=== PATIENT | male | born 1960 | race Caucasian/White ===

== ENCOUNTER 2020-06-13 00:46 | Emergency (ER) | payer SELFPAY ==
[2020-06-13] MEDS ORDERED: oxyCODONE 5 MG Tab PO ONE (01:16)
[2020-06-13] MEDS ORDERED: Ketorolac 15 MG/ML SDV IVPUSH ONE (01:16)
[2020-06-13] MEDS ORDERED: Sodium Chloride 0.9% 2.5 ML Syringe FLUSH PRN (01:16)
[2020-06-13] MEDS ORDERED: Sodium Chloride 0.9% 10 ML Syringe FLUSH PRN (01:16)
--- NOTE | 2020-06-13 01:23 | EDM.PDOC ---
ED [facility] GENERAL MEDICAL PROBLEM - General Chief Complaint: Abdominal Pain Stated Complaint: POSSIBLE KIDNEY STONE Time Seen by Provider: 06/13/20 00:56 Source of Information: Reports: Patient History Limitations: Reports: No Limitations - History of Present Illness INITIAL COMMENTS - FREE TEXT/NARRATIVE: This is a very pleasant 59-year-old man with a past medical history of multiple episodes of ureteral stones and hypertension presenting with abdominal pain. He presents to the emergency department a 3-day history of left lower quadrant abdominal pain radiating to the groin. He states that he has had "20 kidney stones" in the past, and states that these symptoms feel identical to prior stones. He also reports some nausea but no vomiting. Reports some dysuria that seems to be getting better on its own over the past day or so. Denies fever, hematuria, rash, vomiting, diarrhea, rectal bleeding. Pain rated as 10 out of 10, described as "sharp". ROS: A 10-point review of systems was negative, except as noted in the HPI (or in the ROS section of this note). Past medical history: Reviewed, no additional pertinent history. Surgical history: Reviewed in system, no additional pertinent history. Social history: Reviewed in system, no additional pertinent history. Family history: Reviewed in system, no additional pertinent history. PHYSICAL EXAM Vital signs reviewed. Nursing notes reviewed. Constitutional: Awake, alert, non-distressed. Head: Normocephalic, atraumatic. Eyes: EOMI, conjunctiva normal, no discharge, no scleral icterus. Ears, Nose, Throat: External ears and nose normal, moist oral mucosa. Cardiovascular: 2+ radial pulse, capillary refill less than 2 seconds. Pulmonary: normal work of breathing, no accessory muscle use. Abdomen/GI: Soft, very mild left lower quadrant tenderness, nondistended, no guarding or rigidity, no masses. No CVA tenderness. Musculoskeletal: No deformities. Integumentary: Appropriate color for ethnicity, warm, dry, no pallor or jaundice, no rash. Neurologic: Alert, answering questions appropriately, normal speech, no facial droop, moving all extremities well. Psychiatric: Appropriate mood and affect, normal thought process. This patient was seen and evaluated during the 2019 SARS-CoV-2 novel coronavirus pandemic period. Community viral transmission is ongoing at time of this encounter and the emergency department is operating under pandemic response procedures. left flank pain Pain Score (Numeric/FACES): 6 - Related Data Allergies Allergy/AdvReac Type Severity Reaction Status Date / Time cefaclor [From Ceclor] Allergy Facial Verified 06/13/20 01:36 Swelling morphine Allergy Facial Verified 06/13/20 01:36 Swelling Home Meds: Home Meds Hydrochlorothiazide/Lisinopril [Lisinopril/HCTZ 20-12.5 MG] 20 mg PO DAILY 06/13/20 [History] ED ROS GENERAL - Review of Systems Review Of Systems: See Below ED EXAM, GI/ABD - Physical Exam Exam: See Below Course - Vital Signs Text/Narrative:: 59-year-old male presenting with 3 days of left lower quadrant abdominal pain along with some nausea and dysuria. Patient hemodynamically stable, afebrile, well-appearing, looks nontoxic. Heart rate in the 80s, not diaphoretic, does not appear to be uncomfortable or in significant pain. Differential diagnosis includes but is not limited to: Kidney stone, UTI, pyelonephritis, bowel obstruction, ileus, epiploic appendagitis, less likely mesenteric ischemia, less likely intra-abdominal infection, and many others. Patient resting comfortably. Ordered urinalysis, IV access, labs, pain medication. 1:41 AM: I ordered oral oxycodone, IV ketorolac, and p.o. acetaminophen. He expressed displeasure at the pain medications that were ordered. He states that he is allergic to morphine and is specifically requesting "1 mg of Dilaudid and 15 mg of Toradol". His vital signs are stable and he is resting comfortably. He does not appear to be in severe pain. I do not believe that IV opioids such as hydromorphone are indicated at the moment. I explained that we would be administering oral oxycodone along with IV Toradol, the patient is upset because this "will not work fast enough". I explained that we will not be allowing him to pick and choose opioid medications according to his preference and dosing regimen. The patient then states that he will be leaving the hospital and would not allow any further work-up and treatment. He did not stay to sign the hospital AMA discharge form and was seen ambulating out of the emergency department under his own power in no acute distress. Last Recorded V/S: Last Vital Signs Temp 36.3 C 06/13/20 01:09 Pulse 68 06/13/20 01:09 Resp 16 06/13/20 01:09 BP 125/74 06/13/20 01:09 Pulse Ox 97 06/13/20 01:09 - Orders/Labs/Meds Orders: Active Orders 24 hr Category Date Time Status Nothing Per Oral Diet [DIET] Diet 06/13/20 Dinner Active Abdomen Pelvis w Cont [CT] Stat Exams 06/13/20 01:16 Ordered CBC WITH AUTO DIFF [HEME] Stat Lab 06/13/20 01:16 Ordered COMPREHENSIVE METABOLIC PN,CMP [CHEM] Stat Lab 06/13/20 01:16 Ordered UA W/ONEIDA RFLX IF INDICATED [URIN] Stat Lab 06/13/20 00:56 Ordered Sodium Chloride 0.9% [Saline Flush] Med 06/13/20 01:16 Active 10 ml FLUSH ASDIRECTED PRN Sodium Chloride 0.9% [Saline Flush] Med 06/13/20 01:16 Active 2.5 ml FLUSH ASDIRECTED PRN Saline Lock Insert [OM.PC] Stat Oth 06/13/20 01:16 Ordered Medication Orders Sodium Chloride (Saline Flush) 10 ml FLUSH ASDIRECTED PRN PRN Reason: Keep Vein Open Sodium Chloride (Saline Flush) 2.5 ml FLUSH ASDIRECTED PRN PRN Reason: Keep Vein Open Meds: Medications Generic Name Dose Route Start Last Admin Trade Name Freq PRN Reason Stop Dose Admin Sodium Chloride 10 ml 06/13/20 01:16 Saline Flush FLUSH ASDIRECTED PRN Keep Vein Open Sodium Chloride 2.5 ml 06/13/20 01:16 Saline Flush FLUSH ASDIRECTED PRN Keep Vein Open Discontinued Medications Generic Name Dose Route Start Last Admin Trade Name Freq PRN Reason Stop Dose Admin Ketorolac Tromethamine 15 mg 06/13/20 01:16 Toradol IVPUSH 06/13/20 01:17 ONETIME ONE Oxycodone HCl 10 mg 06/13/20 01:16 Oxycodone PO 06/13/20 01:17 ONETIME ONE Departure - Departure Time of Disposition: 01:40 Disposition: Eloped 07 Condition: Good, Fair Clinical Impression: Eloped from emergency department - Discharge Information Referrals: PCP,None [Primary Care Provider] - Forms: ED Department Discharge Sepsis Event Note (ED) - Evaluation Sepsis Screening Result: No Definite Risk - Focused Exam Vital Signs: Vital Signs Temp Pulse Resp BP Pulse Ox 06/13/20 01:09 36.3 C 68 16 125/74 97 - My Orders Last 24 Hours: My Active Orders 06/13/20 00:56 UA W/ONEIDA RFLX IF INDICATED [URIN] Stat 06/13/20 01:16 Abdomen Pelvis w Cont [CT] Stat CBC WITH AUTO DIFF [HEME] Stat COMPREHENSIVE METABOLIC PN,CMP [CHEM] Stat Sodium Chloride 0.9% [Saline Flush] 10 ml FLUSH ASDIRECTED PRN Sodium Chloride 0.9% [Saline Flush] 2.5 ml FLUSH ASDIRECTED PRN Saline Lock Insert [OM.PC] Stat 06/13/20 Dinner Nothing Per Oral Diet [DIET] - Assessment/Plan Last 24 Hours: My Active Orders 06/13/20 00:56 UA W/ONEIDA RFLX IF INDICATED [URIN] Stat 06/13/20 01:16 Abdomen Pelvis w Cont [CT] Stat CBC WITH AUTO DIFF [HEME] Stat COMPREHENSIVE METABOLIC PN,CMP [CHEM] Stat Sodium Chloride 0.9% [Saline Flush] 10 ml FLUSH ASDIRECTED PRN Sodium Chloride 0.9% [Saline Flush] 2.5 ml FLUSH ASDIRECTED PRN Saline Lock Insert [OM.PC] Stat 06/13/20 Dinner Nothing Per Oral Diet [DIET]
== END 2020-06-13 01:38 | disposition left against medical advice (07) ==
LOC: MW.ED 00:46
DX: R10.32 Left lower quadrant pain (principal); R11.0 Nausea; R30.0 Dysuria; Z88.1 Allergy status to other antibiotic agents; Z88.5 Allergy status to narcotic agent
CPT/HCPCS: 99282; 99283